=== PATIENT | female | born 1995 | race Caucasian/White ===

== ENCOUNTER 2018-04-26 16:11 | Emergency (ER) | payer OTHER ==
[~2018-04-26] VITALS: Ht 167.6 cm; Wt 63.5 kg
[2018-04-26 16:25] VITALS: BP 118/76
--- NOTE | 2018-04-26 16:50 | NUR ---
PT. CAME INTO THE ED W/ C/O BURNING YESTSERDAY UPON URINATION. PT. IS AAOX4, RR EVEN AND UNLABORED,DENIES FEVER AND CHILLS. DENIES N/V/D. PT. STATES " I HAD INTERCOURSE TWO DAYS AGO AND AND I SPOTTED AFTER HAVING SEX JUST WHEN I WIPED". DENIES ANY PAIN AT THIS TIME. ER NOTIFIED . WILL CONTINUE TO MONITOR
[2018-04-26] MEDS ORDERED: AZITHROMYCIN 250 MG TAB PO ONE (17:05)
[2018-04-26] MEDS ORDERED: cefTRIAXone 250 MG in LIDOCAINE MPF 1% - **ER/OR** 0.9 ML IM ONE (17:05)
[2018-04-26 18:01] VITALS: BP 118/76
--- NOTE | 2018-04-26 18:01 | NUR ---
Patient discharged with v/s stable. Written and verbal after care instructions given and explained. Patient verbalized understanding. Ambulatory with steady gait. All questions addressed prior to discharge. Advised to follow up with PMD.
== END 2018-04-26 18:01 | disposition home or self-care (01) ==
LOC: MED 16:11
DX: N39.0 Urinary tract infection, site not specified (principal)
CPT/HCPCS: 81002; 81025; 96372; 99283; J0696; J2001

== ENCOUNTER 2020-08-29 16:35 | Emergency (ER) | payer OTHER ==
[~2020-08-29] VITALS: Ht 167.6 cm; Wt 68.0 kg
[2020-08-29 17:02] VITALS: BP 117/83
--- NOTE | 2020-08-29 17:39 | NUR ---
C/O COUGH/CONGESTION/FEVER X2 DAYS. LIVES IN HOUSEHOLD WITH (+) PATIENT HX: NONE RX: NONE
--- NOTE | 2020-08-29 18:06 | NUR ---
COVID SWAB COLLECTED AND WALKED TO LAB
[2020-08-29 18:10] VITALS: BP 117/83
--- NOTE | 2020-08-29 18:10 | NUR ---
Patient discharged with v/s stable. Written and verbal after care instructions given and explained. Patient alert, oriented and verbalized understanding of instructions. Ambulatory with steady gait. All questions addressed prior to discharge. ID band removed. Patient advised to follow up with PMD.
== END 2020-08-29 18:10 | disposition home or self-care (01) ==
LOC: MED 16:35
DX: R05 Cough (principal); Z20.828 Contact with and (suspected) exposure to other viral communicable diseases; R50.9 Fever, unspecified
CPT/HCPCS: 99283; U0003

== ENCOUNTER 2021-03-11 01:25 | Emergency (ER) | payer OTHER ==
[~2021-03-11] VITALS: Ht 167.6 cm; Wt 81.6 kg
[2021-03-11 01:30] VITALS: BP 112/76
[2021-03-11] MEDS ORDERED: KETOROLAC 60 MG/2 ML VIAL IM ONE (01:35)
--- NOTE | 2021-03-11 01:35 | NUR ---
PT AMBULATED TO BED 03.
--- NOTE | 2021-03-11 01:40 | NUR ---
25 Y/O FEMALE C/O TOOTHACHE FOR 2 DAYS. WITH C/O OF HEADACHE. PT STATES 10/10 THROBBING PAIN. PT HAS NOT SEEN DENTIST. MEDHX: [facility]ODNEY[facility] KAYE
[2021-03-11] MEDS ORDERED: ACET-8386 PO (01:51)
[2021-03-11] MEDS ORDERED: IBUP-2213 PO (01:51)
[2021-03-11 02:00] VITALS: BP 112/76
--- NOTE | 2021-03-11 02:00 | NUR ---
Patient discharged with v/s stable. Written and verbal after care instructions given and explained. Patient alert, oriented and verbalized understanding of instructions. Ambulatory with steady gait. All questions addressed prior to discharge. ID band removed. Patient advised to follow up with PMD. Rx of IBUPROFEN AND HYDROCODONE/ACETAMINOPHEN given. Patient educated on indication of medication including possible reaction and side effects. Opportunity to ask questions provided and answered.
== END 2021-03-11 02:00 | disposition home or self-care (01) ==
LOC: MED 01:25
DX: K08.89 Other specified disorders of teeth and supporting structures (principal)
CPT/HCPCS: 96372; 99283; J1885

== ENCOUNTER 2021-06-29 19:31 | Emergency (ER) | payer OTHER ==
[~2021-06-29] VITALS: Ht 167.6 cm; Wt 81.6 kg
[~2021-06-29 19:31] MED LIST: ACET-8386 PO; IBUP-2213 PO
[2021-06-29 19:40] VITALS: BP 125/90
--- NOTE | 2021-06-29 19:42 | NUR ---
TO LOBBY A/W BED AMBULATORY
[2021-06-29] MEDS ORDERED: LIDOCAINE MPF 1% 10 MG/ML VIAL INJ ONE ×2 (20:15→20:30)
[2021-06-29] MEDS ORDERED: AMOX-1000 PO (20:30)
[2021-06-29] MEDS ORDERED: IBUP-2218 PO (20:30)
--- NOTE | 2021-06-29 20:30 | NUR ---
SEEN AND EXAMINED BY PETE
[2021-06-29 20:38] VITALS: BP 125/90
--- NOTE | 2021-06-29 20:38 | NUR ---
Patient discharged with v/s stable. Written and verbal after care instructions given and explained. Patient alert, oriented and verbalized understanding of instructions. Ambulatory with steady gait. All questions addressed prior to discharge. ID band removed. Patient advised to follow up with PMD. Rx of IBUPROFEN, AUGMENTIN given. Patient educated on indication of medication including possible reaction and side effects. Opportunity to ask questions provided and answered.
== END 2021-06-29 20:38 | disposition home or self-care (01) ==
LOC: MED 19:31
DX: K08.89 Other specified disorders of teeth and supporting structures (principal); Z79.899 Other long term (current) drug therapy
CPT/HCPCS: 99283; J2001